=== PATIENT | male | born 1965 | race Caucasian/White ===

== ENCOUNTER 2018-05-10 05:34 | Inpatient (IN) | payer OTHER ==
[2018-03-26 12:08] VITALS: BMI 27.0
--- NOTE | 2018-04-09 15:46 | PAT Medication Instructions ---
Service Date Apr 09, 2018. Current Home Medication List Clonazepam (Klonopin), 0.5 MG PO HS [Vitamin D], 5,000 INTERUNIT PO 3XWK Medication Instructions For Your Scheduled Surgery - Hold the following medications the morning of surgery: [Vitamin D], 5,000 INTERUNIT PO 3XWK - Take the following medications as scheduled the night before surgery: Clonazepam (Klonopin), 0.5 MG PO HS If you have any questions please call us at [phone] or [phone] or [phone]
--- NOTE | 2018-05-09 11:16 | History and Physical ---
History & Physical Date May 09, 2018. Chief Complaint Bilateral hip pain and DJD History of Present Illness The patient is a 52 year old male with complaints of chronic atraumatic severe bilateral hip pain and DJD who has failed conservative outpatient treatments measures which include anti-inflammatories home exercise program and physical therapy. The patient's symptoms have progressed to the point where they are interfering with most daily activities and the patient no longer tolerates exercise programs. The pain and limited function has made it difficult to perform their activities of daily living. They continue to have swelling and painful limited range of motion with crepitation. They have failed outpatient conservative treatment measures and they are requesting to proceed with total hip replacement surgery. Past Medical/Surgical History Colon cancer Allergies Coded Allergies: Enoxaparin (Verified Adverse Reaction, Unknown, migraine, 05/10/18) Home Medications Scheduled Clonazepam (Klonopin), 0.5 MG PO HS [Vitamin D], 5,000 INTERUNIT PO 3XWK Physical Examination Skin: warm/dry, no rash Eyes: normal inspection, EOMI, sclerae normal ENT: normal ENT inspection, pharynx normal Head: normocephalic, atraumatic Neck: supple, no adenopathy, trachea midline Respiratory/Chest: lungs clear, normal breath sounds, no respiratory distress Cardiovascular: regular rate, rhythm, no edema, no murmur Abdomen / GI: normal bowel sounds, non tender Back: normal inspection Extremities: + pertinent finding (Bilateral lower extremities are neurovascularly sensory intact, + EHL/FHL/TA/GS, +2 dorsalis pedis pulse, painful limited active and passive range of motion of bilateral hips. Significant crepitation with range of motion.) Diagnosis Severe bilateral hip DJD Plan of Treatment I have indicated the patient for bilateral anterior total hip arthroplasties. The risks benefits and complications of procedure include but are not limited to infection, acute blood loss, injury to surrounding nerves, vessels, bone, soft tissue, loss of function, arthrofibrosis, failure of the prosthesis, loosening, hip dislocation, leg length discrepancy, need for additional surgery , cardiac and pulmonary events and . The patient is relatively healthy however does have a history of colon cancer for which he was treated for and now is in complete remission over 2 ago. He sees his oncologist routinely and was given a clean bill of health. We will also obtain appropriate medical clearances from his primary care provider. Due to his history we will have them on Xarelto postoperatively for DVT prophylaxis. [facility] upon discharge from the hospital. Multiple views of bilateral hips demonstrate severe DJD with complete loss of the joint spaces, the x-rays are positive for osteophytes, subchondral cysts and is significant sclerosis.
[~2018-05-10] VITALS: Ht 180.3 cm; Wt 88.6 kg
[2018-05-10] VITALS (9 sets, daily range): BP systolic 96–128; BP diastolic 56–88; PULSE 61–94; TEMP 36.3–36.7; O2SAT 98–100; Ht 180.3 cm; Wt 88.6 kg
[~2018-05-10 05:34] MED LIST: KLN/5 PO; VITAMIN D PO
[2018-05-10] MEDS ORDERED: METOCLOPRAMIDE HCL 10 MG TAB PO SCH (06:00)
[2018-05-10] MEDS ORDERED: DEXAMETHASONE 4 MG TAB PO SCH (06:00)
[2018-05-10] MEDS ORDERED: ROPIVACAINE 5MG/ML 30 ML 150 MG, BUPIVACAINE 0.5% MPF INJ 30 ML, EpINEphrine HCL INJ 0.... INFIL SCH ×8 (06:00)
[2018-05-10] MEDS ORDERED: LACTATED RINGER'S 1000ML 1,000 ML IV SCH (06:00)
[2018-05-10] MEDS ORDERED: CeleBREX 200 MG CAP PO SCH (06:00)
[2018-05-10] MEDS ORDERED: ACETAMINOPHEN 500 MG TAB PO SCH (06:00)
[2018-05-10] MEDS ORDERED: FAMOTIDINE 20 MG TAB PO SCH (06:00)
[2018-05-10] MEDS ORDERED: GABAPENTIN 300 MG CAP PO SCH (06:00)
[2018-05-10] MEDS ORDERED: CEFAZOLIN 2000MG IV PUSH 15 ML IV SCH (06:00)
[2018-05-10] MEDS ORDERED: LACTATED RINGER'S 1000ML 500 ML IV SCH (06:00)
[2018-05-10] MEDS: TRANEXAMIC ACID INJ 1,000 MG x 2 Bags IV SCH ×4 (06:30→06:45)
[2018-05-10] MEDS ORDERED: BUPIVACAINE 0.5 % 5 MG/1 ML PF 10ML VIAL ONE (06:38)
[2018-05-10] MEDS ORDERED: ROCURONIUM BROMIDE 10 MG/ML 5 ML VIAL ONE ×11 (06:39→09:42)
[2018-05-10] MEDS ORDERED: BACITRACIN 50000 UNIT VIAL ONE ×2 (06:39→09:44)
[2018-05-10] MEDS ORDERED: POVIDONE-IODINE OP SOLN 30 ML BTL ONE (06:39)
[2018-05-10] MEDS ORDERED: LIDOCAINE HCL 2% 2 ML VIAL (20MG/ML) ONE (06:39)
[2018-05-10] MEDS ORDERED: ONDANSETRON INJ 2 MG/ML 2 ML VIAL ONE (06:39)
[2018-05-10] MEDS ORDERED: ORTHO JOINT ANESTHETIC ONE (06:39)
[2018-05-10] MEDS ORDERED: PROPOFOL IV EMULSION 10 MG/ML 20 ML VIAL ONE (06:39)
[2018-05-10] MEDS ORDERED: MIDAZOLAM HCL 1 MG/ML 2ML VIAL ONE (06:40)
[2018-05-10] MEDS ORDERED: FENTANYL CITRATE INJ 50 MCG/1 ML 2 ML VIAL ONE ×2 (06:40→07:28)
--- NOTE | 2018-05-10 06:49 | History & Physical Bridge Note ---
H&P Re-Evaluation Bridge Note: I have examined the patient, reviewed the History & Physical and in the interval since the performance of the History & Physical I have noted the following changes of clinical significance: No changes noted
[2018-05-10] MEDS ORDERED: ATROPINE SULFATE 0.1 MG/ML 5ML SYR IV PRN (07:00)
[2018-05-10] MEDS ORDERED: FENTANYL CITRATE INJ 50 MCG/1 ML 2 ML VIAL IV PRN (07:00)
[2018-05-10] MEDS ORDERED: ONDANSETRON INJ 2 MG/ML 2 ML VIAL IV PRN ×2 (07:00→12:15)
[2018-05-10] MEDS ORDERED: EpHEDrine SULFATE INJ 50 MG/ML AMP IV PRN (07:00)
[2018-05-10] MEDS ORDERED: HYDROmorphone INJ 1 MG/ML SYR IV PRN (07:00)
[2018-05-10] MEDS ORDERED: HYDROmorphone INJ 2 MG/ML SYR/VIAL ONE (07:54)
[2018-05-10] MEDS ORDERED: ACETAMINOPHEN 1000 MG/100 ML IV IV ONE (08:02)
[2018-05-10] MEDS ORDERED: ALBUMIN HUMAN 5% 12.5 GM/250 ML VIAL IV ONE (10:59)
[2018-05-10] MEDS ORDERED: PHENYLEPHRINE 100MCG/ML 5ML SYR ONE (11:16)
[2018-05-10] MEDS ORDERED: EpHEDrine SULFATE 50MG/5ML SYR ONE (11:16)
[2018-05-10] MEDS ORDERED: CEFAZOLIN SOD 1 GM VIAL ONE (11:45)
--- NOTE | 2018-05-10 11:56 | [facility] Post Operative Brief Note ---
Immediate Operative Summary Operative Date May 10, 2018. Pre-Operative Diagnosis Bilateral hip pain and degenerative joint disease. Post-Operative Diagnosis Same Procedure(s) Performed Bilateral anterior JOY Surgeon Dr. Jacobs Deli Clerk Surgeon(s) Kalia Yuen PA-C Estimated Blood Loss 250cc total, 125 right, 125 left Findings Consistent with Post-Op Diagnosis Fluids (cc crystalloids) 2400, 500 albumin Specimens femoral heads Drains None Anesthesia Type General Complication(s) none Disposition Disposition: Recovery Room / PACU Overlapping Procedure I was present for: the critical portions of procedure. I was immediately available: during the entire case Back up surgeon: was not required during procedure
[2018-05-10] MEDS ORDERED: TAMSULOSIN HCL 0.4 MG CAP PO PRN (12:15)
[2018-05-10] MEDS ORDERED: MoRPHine SULFATE 4 MG/ML 1 ML CARP\\VIAL IV PRN (12:15)
--- NOTE | 2018-05-10 12:18 | [facility] Operative Report ---
Operative Report Operative Date May 10, 2018. Pre-Operative Diagnosis Bilateral hip pain and degenerative joint disease. Post-Operative Diagnosis Same Procedure(s) Performed Bilateral anterior JOY Surgeon Dr. Jacobs Field Mechanic Surgeon(s) Kalia Yuen PA-C Estimated Blood Loss 250cc total, 125 right, 125 left Findings See dictated op note Fluids 2400, 500 albumin Specimens femoral heads Drains None Anesthesia Type General Complication(s) none Disposition Recovery Room / PACU Indications The patient is a 52-year-old [ ] who presents with severe progressive severe bilateral hip DJD who has failed outpatient conservative treatments. I indicated the patient for bilateral anterior total hip replacement and the risks and benefits were explained in detail which include but not limited to infection, bleeding, blood clot, damage to surrounding bone, nerves, vessels, soft tissue, hip dislocation, failure of the prosthesis, leg length discrepancy , need for additional surgery and . The patient agreed to proceed with replacement of the hip and informed consent was obtained. Appropriate clearances were obtained. Description of Procedure COMPONENTS USED: Right hip: [employer] hip system: Acetabulum size 54, femur size 6 high offset, femoral head 36-3, liner 3654, acetabular screw 25 mm. Left hip: [employer] hip system: Acetabulum size 54, femur size 6 high offset, femoral head 36-3, liner 3654, acetabular screw 25 mm. DESCRIPTION OF PROCEDURE: Following satisfactory general anesthesia, the patient was placed supine on the OR table. The left leg was placed in the well leg hayes and the right leg in the traction device. The right leg was prepared with ChloraPrep and draped sterilely. Following a surgical time-out, an anterior approach in the interval between the sartorius and tensor muscles was completed. Circumflex femoral vessels were identified, tied and ligated. The anterior capsular fat pad was removed and the capsulotomy was performed revealing the arthritic femoral neck and head. A femoral neck cut was made with reciprocating saw and the bone fragments removed. The acetabular self- retraining retractor was placed. Acetabular reaming was completed under fluoroscopic guidance, a 54 shell was impacted into an anatomic position and secured with a dome screw. Local anesthetic was placed and following irrigation , the polyethylene liner was placed. The femur was placed into position of external rotation, extension and adduction. Femoral canal was prepared up to the size 6 high offset. Trial reduction with a -3 neck length head showed good soft tissue tension, leg lengths restored, and good fit and fill of the proximal canal using fluoroscopic landmarks. The hip was dislocated. The trial component was removed. The final implant was placed. The hip was irrigated with sterile saline soluation and reduced. A Betadine soak was performed. After 3 minutes, the hip was once more irrigated with copious sterile saline solution with bacitracin. Robina- incisional soft tissue was injected utilizing half the [place] [employer] which includes a combination of Ropivicaine 0.5% 150mg, Bupivicaine 0.5%/ Epinephrine 1:200,000 30ml, Toradol 30mg, Dexamethasone 4mg, Ketamine 10mg, Clonidine 100mcg and NSS 30ml solution. The capsule was then closed with 1-0 Vicryl interrupted figure of eight sutures. The fascia was closed with a running suture of #1 Vicryl, the subcutaneous tissues with 2-0 Vicryl and the skin with a running subcuticular stitch of 3-0 V-Loc. Dermabond prineo and a dry dressing were applied. Upon completion of the right anterior total hip arthroplasty the drapes were taken down and the patient was positioned in anticipation for his left anterior total hip arthroplasty The right leg was placed in the well leg hayes and the left leg in the traction device. The left leg was prepared with ChloraPrep and draped sterilely. Following a second surgical time-out, an anterior approach in the interval between the sartorius and tensor muscles was completed. Circumflex femoral vessels were identified, tied and ligated. The anterior capsular fat pad was removed and the capsulotomy was performed revealing the arthritic femoral neck and head. A femoral neck cut was made with reciprocating saw and the bone fragments removed. The acetabular self-retraining retractor was placed. Acetabular reaming was completed under fluoroscopic guidance, a 54 shell was impacted into an anatomic position and secured with a dome screw. Local anesthetic was placed and following irrigation, the polyethylene liner was placed. The femur was placed into position of external rotation, extension and adduction. Femoral canal was prepared up to the size 6 high offset. Trial reduction with a -3 neck length head showed good soft tissue tension, leg lengths restored, and good fit and fill of the proximal canal using fluoroscopic landmarks. The hip was dislocated. The trial component was removed. The final implant was placed. The hip was irrigated with sterile saline soluation and reduced. A Betadine soak was performed. After 3 minutes, the hip was once more irrigated with copious sterile saline solution with bacitracin. Robina- incisional soft tissue was injected utilizing the remaining half of [place] [employer] which includes a combination of Ropivicaine 0.5% 150mg, Bupivicaine 0.5 %/Epinephrine 1:200,000 30ml, Toradol 30mg, Dexamethasone 4mg, Ketamine 10mg, Clonidine 100mcg and NSS 30ml solution. The capsule was then closed with 1-0 Vicryl interrupted figure of eight sutures. The fascia was closed with a running suture of #1 Vicryl, the subcutaneous tissues with 2-0 Vicryl and the skin with a running subcuticular stitch of 3-0 V-Loc. Dermabond prineo and a dry dressing were applied. The patient tolerated the procedure well and was transported to PACU in stable condition. Due to the complex nature of the procedure, the entire surgery was performed with the operational assistance of Kalia Yuen PA-C. The pharmacy sales assistant, under direct supervision, was involved in the actual performance of all aspects of the surgical procedure including patient positioning, hemostasis, tissue retraction, instrument management and wound closure. I attest to the content of the Intraoperative Record and any orders documented therein. Any exceptions are noted below.
--- NOTE | 2018-05-10 13:21 | Anesthesiology Progress Note ---
Anesthesia Post Op Note Date & Time May 10, 2018 at 13:21 Vital Signs Pain Intensity: 0 Vital Signs Past 12 Hours Date Time Temp Pulse Resp B/P (MAP) Pulse Ox O2 Delivery O2 Flow Rate FiO2 05/10/18 13:15 98 16 103/49 100 Room Air 05/10/18 13:05 86 16 94/46 100 Room Air 05/10/18 12:55 102 16 107/53 98 Room Air 05/10/18 12:45 107 16 107/53 100 Oxymask 10 05/10/18 12:35 85 16 89/48 99 Oxymask 10 05/10/18 12:29 36.3 87 16 90/45 99 Oxymask 10 05/10/18 05:49 36.7 69 18 124/88 Notes Mental Status: alert / awake / arousable, participated in evaluation Pt Amnestic to Procedure: Yes Nausea / Vomiting: adequately controlled Pain: adequately controlled Airway Patency, RR, SpO2: stable & adequate BP & HR: stable & adequate Hydration State: stable & adequate Anesthetic Complications: no major complications apparent
--- NOTE | 2018-05-10 13:27 | DIAGNOSTIC IMAGING REPORT ---
L PELVIS/UNILATERAL HIP 1 VIEW CLINICAL HISTORY: IN PACU - A/P PELVIS and LATERAL HIP INCLUDING ALL OF IMPLANT pain COMPARISON: None. DISCUSSION: Anatomic alignment post post total bilateral hip arthroplasties. Anatomic alignment. Good contact between prosthetic and underlying bone. IMPRESSION: Anatomic alignment post total bilateral hip arthroplasties. The above report was generated using voice recognition software. It may contain grammatical, syntax or spelling errors. Electronically signed by: Callum Hull M.D. 05/10/2018 1:26 PM Dictated Date/Time: 05/10/2018 1:19 PM
--- NOTE | 2018-05-10 14:02 | Orthopedic Progress Note ---
Orthopedic Progress Note Date of Service May 10, 2018. Subjective Additional Notes: Postoperative progress note Patient seen in PACU holding, comfortable, denies complaints at this time, no acute issues. Pain well controlled. Objective No apparent distress, alert and oriented 3 Bilateral lower extremities are neurovascular sensory intact, +2 dorsalis pedis pulse, compartments soft nontender, dressings clean dry and intact, incisional VAC's intact. Date Time Temp Pulse Resp B/P (MAP) Pulse Ox O2 Delivery O2 Flow Rate FiO2 05/10/18 13:50 36.1 93 16 104/55 100 Room Air 05/10/18 13:35 36.1 103 16 102/53 99 Room Air 05/10/18 13:25 36.1 92 16 101/57 99 Room Air 05/10/18 13:15 98 16 103/49 100 Room Air 05/10/18 13:05 86 16 94/46 100 Room Air 05/10/18 12:55 102 16 107/53 98 Room Air 05/10/18 12:45 107 16 107/53 100 Oxymask 10 05/10/18 12:35 85 16 89/48 99 Oxymask 10 05/10/18 12:29 36.3 87 16 90/45 99 Oxymask 10 05/10/18 05:49 36.7 69 18 124/88 Assessment & Plan Assessment: Status post bilateral anterior total hip arthroplasty. Plan: -Ancef 24 -DVT prophylaxis/Xarelto -Weight-bear as tolerates bilateral lower extremities -PT OT -Postoperative x-ray demonstrates well aligned well fixed bilateral total hip prosthesis without evidence of loosening, fracture or dislocation. -Yaneli mustafa -ALMITA Collins postoperative day number 1 AM -DC planning: Home [facility]
--- NOTE | 2018-05-10 14:46 | DIAGNOSTIC IMAGING REPORT ---
INTRAOPERATIVE RADIOGRAPHS RIGHT HIP; INTRAOPERATIVE RADIOGRAPHS LEFT HIP CLINICAL HISTORY: Bilateral hip arthroplasty procedure. Fluoroscopy time: 75 seconds on the right and 72 seconds on the left. FINDINGS: 2 spot fluoroscopic images of the right hip and 2 spot fluoroscopic images of the left hip are presented. There are bilateral hip arthroplasties in near-anatomic alignment. A single cortical lag screw transfixes the acetabular cup bilaterally. There is no evidence of fracture in either hip on these fluoroscopic images. IMPRESSION: Intraoperative images from bilateral hip arthroplasties as above. Electronically signed by: Braulio Damon M.D. 05/10/2018 2:45 PM Dictated Date/Time: 05/10/2018 2:43 PM
[2018-05-10] MEDS ORDERED: NURSING VERBAL MED ORDER ONE (15:30)
[2018-05-10] MEDS ORDERED: COUGH DROP (SUGAR FREE) LOZ 24 LOZ/1 BOX LOZ PRN (15:30)
[2018-05-10] MEDS: SODIUM CHLORIDE 0.9% 1000ML 1,000 ML IV SCH (15:38)
[2018-05-10] MEDS: KETOROLAC TROMETHAMINE 30 MG/ML VIAL IV. SCH ×2 (17:49→23:12)
[2018-05-10] MEDS: CEFAZOLIN IV 2,000 MG in SYRINGE 0 ML IV SCH (17:50)
[2018-05-10] MEDS: OXYCODONE HCL IR 5 MG TAB (IMMEDIATE RELEASE) PO PRN (19:20)
[2018-05-10] MEDS ORDERED: SENNA 8.6 MG TAB PO SCH (21:00)
[2018-05-10] MEDS ORDERED: CLONAZEPAM 0.5 MG TAB PO SCH (21:00)
[2018-05-10] MEDS: DOCUSATE SODIUM 100 MG CAP PO SCH (21:25)
[2018-05-10] MEDS: ACETAMINOPHEN 500 MG TAB PO SCH (21:26)
[2018-05-11] MEDS: CEFAZOLIN IV 2,000 MG in SYRINGE 0 ML IV SCH (01:39)
[2018-05-11] MEDS: SODIUM CHLORIDE 0.9% 1000ML 1,000 ML IV SCH ×2 (01:40→11:28)
[2018-05-11 04:05] VITALS: BP 96/55; PULSE 60; TEMP 36.6; O2SAT 99
[2018-05-11] MEDS: KETOROLAC TROMETHAMINE 30 MG/ML VIAL IV. SCH ×2 (05:16→11:28)
[2018-05-11] MEDS: ACETAMINOPHEN 500 MG TAB PO SCH ×2 (05:16→13:50)
[2018-05-11 05:59] LABS: HEMATOCRIT 31.2 % (42-52); HEMOGLOBIN 10.2 g/dL (14.0-18.0); IG# 0.03 K/uL (0.00-0.02); LYMPH % 7.1 %; LYMPH ABS # 0.91 K/uL (1.2-3.4); MEAN CELL VOLUME 94.8 fL (80-100); MEAN CORPUSCULAR HGB CONC 32.7 g/dl (32-36); MEAN PLATELET VOLUME 10.5 fL (7.4-10.4); MONO % 6.2 %; NEUT % 86.5 %; NEUT ABS # 11.07 K/uL (1.4-6.5); PLATELET COUNT 175 K/uL (130-400); RED CELL DISTRIBUTION WIDTH CV 13.3 % (11.5-14.5); RED CELL DISTRIBUTION WIDTH SD 46.1 fL (36.4-46.3); WHITE BLOOD COUNT 12.81 K/uL (4.8-10.8)
[2018-05-11 06:30] LABS: CALCIUM 7.8 mg/dl (8.5-10.1); CREATININE 0.92 mg/dl (0.60-1.40); POTASSIUM 4.2 mmol/L (3.5-5.1)
[2018-05-11 07:31] VITALS: BP 96/58; PULSE 60; TEMP 36.5; O2SAT 100
[2018-05-11] MEDS ORDERED: RIVAROXABAN 10 MG TAB PO SCH (08:00)
--- NOTE | 2018-05-11 08:31 | Orthopedic Progress Note ---
Orthopedic Progress Note Date of Service May 11, 2018. Subjective Post OP Day: 1 Reports: feeling well, Denies: complaints, chest pain, SOB, nausea / vomiting, light headedness, calf pain Objective calves soft nontender, N/V intact, hip located, dressing C/D/I (Prevena intact) , A&O x3, toes mobile Date Time Temp Pulse Resp B/P (MAP) Pulse Ox O2 Delivery O2 Flow Rate FiO2 05/11/18 07:31 36.5 60 16 96/58 (71) 100 Room Air 05/11/18 04:05 36.6 60 16 96/55 (69) 99 Room Air 05/10/18 23:50 36.4 61 16 96/56 (69) 99 Room Air 05/10/18 23:15 Room Air 05/10/18 19:22 36.5 72 18 128/73 (91) 98 Room Air 05/10/18 17:31 36.3 69 18 102/65 (77) 100 Room Air 05/10/18 16:09 36.4 86 18 115/74 (88) 99 Nasal Cannula 2.0 05/10/18 15:52 Room Air 05/10/18 15:11 94 18 104/62 (76) 100 Room Air 05/10/18 14:49 85 16 106/58 (74) 100 05/10/18 14:30 Room Air 05/10/18 14:28 100 Room Air 05/10/18 14:20 36.4 89 14 108/60 (76) 100 Room Air 05/10/18 14:05 36.1 79 16 101/54 95 Room Air 05/10/18 13:50 36.1 93 16 104/55 100 Room Air 05/10/18 13:35 36.1 103 16 102/53 99 Room Air 05/10/18 13:25 36.1 92 16 101/57 99 Room Air 05/10/18 13:15 98 16 103/49 100 Room Air 05/10/18 13:05 86 16 94/46 100 Room Air 05/10/18 12:55 102 16 107/53 98 Room Air 05/10/18 12:45 107 16 107/53 100 Oxymask 10 05/10/18 12:35 85 16 89/48 99 Oxymask 10 05/10/18 12:29 36.3 87 16 90/45 99 Oxymask 10 Laboratory Results 24 Hours: Test 05/11/18 05:32 White Blood Count 12.81 K/uL Red Blood Count 3.29 M/uL Hemoglobin 10.2 g/dL Hematocrit 31.2 % Mean Corpuscular Volume 94.8 fL Mean Corpuscular Hemoglobin 31.0 pg Mean Corpuscular Hemoglobin Concent 32.7 g/dl Platelet Count 175 K/uL Mean Platelet Volume 10.5 fL Neutrophils (%) (Auto) 86.5 % Lymphocytes (%) (Auto) 7.1 % Monocytes (%) (Auto) 6.2 % Eosinophils (%) (Auto) 0.0 % Basophils (%) (Auto) 0.0 % Neutrophils # (Auto) 11.07 K/uL Lymphocytes # (Auto) 0.91 K/uL Monocytes # (Auto) 0.80 K/uL Eosinophils # (Auto) 0.00 K/uL Basophils # (Auto) 0.00 K/uL Prothromb Time International Ratio 1.0 Prothrombin Time 10.2 SECONDS Assessment & Plan Assessment: POD 1 Status post bilateral anterior total hip arthroplasty. Plan: -DVT prophylaxis/Xarelto -Weight-bear as tolerates bilateral lower extremities -PT OT -DC Karina postoperative day number 1 AM -DC planning: Home with [facility] Planning Pain Management: Celebrex, Toradol, Morphine, PO Tylenol, Oxy IR Discharge Planning Discharge Planning: home with home health
[2018-05-11] MEDS: DOCUSATE SODIUM 100 MG CAP PO SCH (08:39)
--- NOTE | 2018-05-11 08:40 | Discharge Instructions ---
Discharge Instructions Date of Service May 11, 2018. Admission Reason for Admission: Bilateral Primary Osteoarthritis Hip Discharge Discharge Diagnosis / Problem: Bilateral Primary Osteoarthritis of hips Discharge Goals Goal(s): Decrease discomfort, Improve function, Increase independence Activity Recommendations Activity Limitations: per Instructions/Follow-up section Weightbearing Status: Left weightbearing (as tolerated), Right weightbearing ( as tolerated) . Instructions / Follow-Up Instructions / Follow-Up ACTIVITY RECOMMENDATIONS: SELF CARE INSTRUCTIONS AFTER TOTAL HIP REPLACEMENT : Direct Anterior Approach Until the incision and soft tissues around your hip have healed, there is a possibility that the hip prosthesis could dislocate. A. Hip flexion ( Up & Down out of chair or steps ) may be difficult. This is normal. B. Numbness in front of the thigh is also normal for a few weeks. C. Use hand rails when walking on stairs. D. Wear low heeled shoes with non-slip soles. E. Be sure that your floors are free of things that could trip you - throw rugs , electrical cords, small objects. Avoid wet and waxed floors, especially with crutches and canes. F. Try to walk several times a day with rest periods between. G. Continue with all the exercises taught to you in the hospital. Again, make walking a part of your daily routine. SPECIAL CARE INSTRUCTIONS: VERY IMPORTANT TO READ AND REVIEW A. You may still be at risk for phlebitis and blood clots. 1. Wear surgical stockings (ESA hose) for 2 weeks after surgery to improve circulation and reduce swelling. 2. Take XARELTO once daily for 4 weeks or as directed by your doctor. This is your blood thinner. B. You must take antibiotics before having dental work, bladder, bowel and other surgery. Your doctor will provide you with a permanent card to carry describing precautions. C. Call [facility] if you have a fever, redness or swelling around the incision, cloudy drainage from incision, or sudden increase in pain in your hip, not relieved by your regular pain medication. D. Please call the office at if you have any concerns or questions about your operation or recovery. * YOU MAY SHOWER, NO TUB BATHS UNTIL CLEARED BY YOUR DOCTOR. - Keep an extra close eye on the top portion of your incision. Be sure to keep clean & dry. * WEAR ESA HOSE 20 HOURS PER DAY FOR 2 WEEKS. * YOU MAY PROGRESS FROM A WALKER, TO A CANE, TO INDEPENDENT AT YOUR OWN PACE. * MOST PATIENTS WILL HAVE HOME NURSING FOR THERAPY. IF YOU DECIDE TO DO OUTPATIENT PHYSICAL THERAPY, PLEASE SCHEDULE THIS 3 TIMES PER WEEK. * DERMABOND Prineo- This is a mesh tape dressing that is covered with glue. It should remain in place until the incision is properly healed, usually 10-14 days. This dressing is designed to naturally slough off. You may trim the excess mesh tape as it peels off. Incision may be briefly wet in a shower. Dry immediately by blotting with a clean, dry towel. Do not bath or swim until instructed by your doctor. Do not scratch, rub, or pick at the dressing. Do not apply any topical ointments or lotions until dressing is completely removed and/or instructed by your doctor. There may be a small piece of suture material at one end of your incision. Do not pull or trim this. If it is bothersome or catching on clothing, you may cover it with a band-aid. * Prevena- This is a large suction dressing covering your incision. This will help pull any excess drainage from the wound and allow your incision to heal properly. You may shower with this if you can keep the unit outside of the shower. If any bleeding or leakage is noted please call your doctor's office. This will remain on your incision for 7 days and then should be removed. This can be done yourself or by the home nursing staff if applicable. The entire unit is disposable once removed. Once removed, keep incision clean and dry. If redness or drainage is noted, please call your surgeon. FOLLOW UP VISIT: If appointment is not already scheduled: Please call [facility] to make a follow-up appointment for 2 weeks after your surgery at . Current Hospital Diet Patient's current hospital diet: Regular Diet Discharge Diet Recommended Diet: Regular Diet Procedures Procedures Performed: Bilateral anterior JOY Pending Studies Studies pending at discharge: no Laboratory Results Hemoglobin A1c Test 04/09/18 15:46 Range/Units Estimated Average Glucose 120 mg/dl Hemoglobin A1c 5.8 H 4.5-5.6 % Medical Emergencies . Who to Call and When: Medical Emergencies: If at any time you feel your situation is an emergency, please call 911 immediately. . Non-Emergent Contact Non-Emergency issues call your: Surgeon Call Non-Emergent contact if: temperature is above 101.5, your pain is not controlled, your pain is worsening, wound has increased drainage, wound has increased redness . "Provider Documentation" section prepared by Kalia Yuen. . [place] Drug Monitoring Program Search Results: patient reviewed within database, no issues identified
[2018-05-11] MEDS: OXYCODONE HCL IR 5 MG TAB (IMMEDIATE RELEASE) PO PRN ×2 (08:43→15:15)
[2018-05-11] MEDS ORDERED: MULTIVITAMIN TAB PO SCH (09:00)
[2018-05-11] MEDS ORDERED: PANTOprazole SOD 40 MG TAB PO SCH (09:00)
[2018-05-11 11:49] VITALS: BP 90/56; PULSE 60; TEMP 36.7; O2SAT 100
--- NOTE | 2018-05-11 13:51 | Anesthesiology Progress Note ---
Anesthesia Post Op Note Date & Time May 11, 2018 at 07:50 Vital Signs Pain Intensity: 4.0 Vital Signs Past 12 Hours Date Time Temp Pulse Resp B/P (MAP) Pulse Ox O2 Delivery O2 Flow Rate FiO2 05/11/18 11:49 36.7 60 16 90/56 (67) 100 Room Air 05/11/18 07:31 36.5 60 16 96/58 (71) 100 Room Air 05/11/18 07:30 Room Air 05/11/18 04:05 36.6 60 16 96/55 (69) 99 Room Air Notes Mental Status: alert / awake / arousable, participated in evaluation Pt Amnestic to Procedure: Yes Nausea / Vomiting: adequately controlled Pain: adequately controlled Airway Patency, RR, SpO2: stable & adequate BP & HR: stable & adequate Hydration State: stable & adequate Anesthetic Complications: no major complications apparent
[2018-05-11] MEDS ORDERED: SENN-61 PO (14:06)
[2018-05-11] MEDS ORDERED: ACET-24 PO (14:06)
[2018-05-11] MEDS ORDERED: CLB200 PO (14:06)
[2018-05-11] MEDS ORDERED: XRL10 PO (14:06)
[2018-05-11] MEDS ORDERED: RXC5 PO (14:06)
[2018-05-11 14:38] VITALS: BP 90/56; PULSE 60; TEMP 36.7; O2SAT 100
[2018-05-11] MEDS ORDERED: CeleBREX 200 MG CAP PO SCH (21:00)
--- NOTE | 2018-05-18 09:47 | DISCHARGE SUMMARY ---
DISCHARGE DIAGNOSIS: Degenerative joint disease, bilateral hips. SECONDARY DIAGNOSIS: History of colon carcinoma. CONSULTS: None. COMPLICATIONS: None. PROCEDURES: Bilateral total hip arthroplasty by Dr. Jacobs on 05/10/2018. BRIEF HISTORY: As dictated in the history and physical. HOSPITAL SUMMARY: Patient was admitted on the above-noted date and had the above-noted surgery performed which he tolerated well. On his first postoperative day, he was feeling well and had no complaints. Calves were soft and nontender. Neurovascularly intact. Hips were located. Dressings were clean, dry and intact. Toes were mobile. Vital signs were stable. He was afebrile. Hemoglobin was 10.2 and he was started on physical therapy protocol and continued on DVT prophylaxis and pain management. He was later on the day progressing quite well with his ambulation and patient was seen by Dr. Jacobs and it was felt he was stable for discharge. He was lastly discharged to home on 05/11/2018. For further review, please see chart. LAB AND X-RAY DATA: As per chart. DISCHARGE INSTRUCTIONS: Patient was discharged to home in satisfactory condition on 05/11/2018. DIET: Regular. ACTIVITY: Weightbearing as tolerated on left and right lower extremities. Follow JOY instruction sheet and special care instructions as noted. Follow up with Dr. Jacobs in 2 weeks. Patient to call for appointment, if one has not been made for you. DISCHARGE MEDICATIONS: Acetaminophen 1000 mg p.o. q. 8 hours for 14 days, Celebrex 200 mg p.o. b.i.d. for 30 days, oxycodone 5-10 mg p.o. q. 4-6 hours p.r.n. pain, rivaroxaban 10 mg p.o. daily for 28 days, senna 17.2 mg p.o. h.s. p.r.n. constipation. Resume home meds as listed.
== END 2018-05-11 15:30 | disposition home health service (06) | DRG 462 ==
LOC: C.ACU 05:34 → C.3E 12:11 → ENRESERV 14:06
PROVIDERS: ADMIT Orthopaedic Surgery; ATTEND Orthopaedic Surgery
PROC: 0SR90J9 Replacement of Right Hip Joint with Synthetic Substitute, Cemented, Open Approach (ICD-10-PCS; principal; 2018-05-10 07:00)
PROC: 0SRB0J9 Replacement of Left Hip Joint with Synthetic Substitute, Cemented, Open Approach (ICD-10-PCS; principal; 2018-05-10 07:00)
DX: M16.0 Bilateral primary osteoarthritis of hip (principal); Z85.038 Personal history of other malignant neoplasm of large intestine; Z88.8 Allergy status to other drugs, medicaments and biological substances